=== PATIENT | female | born 1970 | race Caucasian/White ===

== ENCOUNTER 2019-09-16 16:56 | Emergency (ER) | payer OTHER ==
[~2019-09-16] VITALS: Ht 154.9 cm; Wt 76.2 kg
[2019-09-16 17:05] VITALS: BP 195/96
--- NOTE | 2019-09-16 17:13 | NUR ---
Pt ambulated to bed 2.
--- NOTE | 2019-09-16 17:15 | NUR ---
C/O FEELING PALPITATIONS, FATIGUE, AND POLYURIA X 1 DAY. PT DENIES N/V/D, CP, OR SOB. PT HR 116 AT THIS TIME, ELEVATED BP 195/96. FSBS 325. PT ALERT AND AWAKE. AMBULATORY WITH STEADY GAIT. HX: DM, HTN RX: NAMES UNK
--- NOTE | 2019-09-16 17:16 | NUR ---
PT DENIES PAIN AT THIS TIME
--- NOTE | 2019-09-16 17:41 | NUR ---
EMT AT BEDSIDE FOR EKG
[2019-09-16 18:32] VITALS: BP 174/79
--- NOTE | 2019-09-16 18:34 | NUR ---
Patient discharged with v/s stable. Written and verbal after care instructions given and explained regarding high blood sugar , pt alert ,ambulatory stable gait no c/o of pain. Patient verbalized understanding. Ambulatory with steady gait. All questions addressed prior to discharge. Advised to follow up with PMD.inez sanchez translate into chinese.
== END 2019-09-16 18:34 | disposition home or self-care (01) ==
LOC: MED 16:56
DX: R00.2 Palpitations (principal); E11.65 Type 2 diabetes mellitus with hyperglycemia; I10 Essential (primary) hypertension; Z90.49 Acquired absence of other specified parts of digestive tract
CPT/HCPCS: 81002; 93005; 99283